=== PATIENT | female | born 1955 | race Hispanic/Latino ===

== ENCOUNTER → 2020-01-16 | Outpatient (CLI) | payer BC ==
--- NOTE | 2020-01-16 10:36 | Diagnostic Imaging Report ---
TECHNIQUE: Magnetic resonance imaging of the RIGHT SHOULDER was performed WITHOUT injected contrast. COMPARISON: None available. HISTORY: Pain FINDINGS: MUSCLES AND TENDONS: Rotator Cuff: Tendons: Full thickness full width tear of the supraspinatus tendon with posterior propagation into the infraspinatus tendon as a partial-thickness articular sided tear. The superficial fibers are retracted approximately 2.5 cm and deep fibers approximately 3.5 cm. Muscles: No focal muscle atrophy. Biceps Tendon: The long head of the biceps tendon is intact and within the intertubercular groove. GLENOHUMERAL JOINT: Glenoid Labrum: Sublabral foramen. Posterior labral tearing. Articular Cartilage: No focal defect. AC JOINT AND ACROMION: Mild hypertrophic degenerative changes of the acromioclavicular joint. Subacromial spurring. BONE: No acute fracture. SOFT TISSUES: Otherwise, the soft tissues appear unremarkable. IMPRESSION: Supraspinatus full-thickness tear with posterior propagation as a partial-thickness articular sided tear into the infraspinatus with retraction as above. No atrophy. Subacromial spurring. Signed by: Dr. Alejandro Mata M.D. on 01/16/2020 10:32 AM
== END ==
LOC: MRI 08:25
PROVIDERS: ATTEND Specialist
DX: M75.41 Impingement syndrome of right shoulder (principal)